=== PATIENT | male | born 1990 | race Caucasian/White ===

== ENCOUNTER 2021-12-22 10:28 | Emergency (ER) | payer OTHER, SELFPAY ==
[2021-12-22 10:41] VITALS: BP 120/91; PULSE 73; RESP 16; TEMP 36.6; O2SAT 99
--- NOTE | 2021-12-22 11:02 | ED.EAR ---
HPI - Ear Problem General Chief complaint: Ear Stated complaint: left ear pain Time Seen by Provider: 12/22/21 11:02 Source: patient and RN notes reviewed Mode of arrival: ambulatory Limitations: no limitations History of Present Illness HPI Narrative: 31-year-old male presents with concern for left ear pain. He reports symptoms started several days ago, he has had decreased hearing and a small amount of green drainage. He denies upper respiratory symptoms. Denies fever, bodies, chills, sweats. MD Complaint: ear pain Related Data Allergies Allergy/AdvReac Type Severity Reaction Status Date / Time No Known Allergies Allergy Verified 12/22/21 10:42 Review of Systems Review of Systems: CONSTITUTIONAL: Denies malaise, chills, sweats, or fever. EYES: Denies visual changes, redness, or discharge. ENT: Denies rhinorrhea, congestion, sinus pain, and sore throat. Reports left ear pain with drainage and decreased hearing CARDIOVASCULAR: Denies chest pain, palpitations, or edema. RESPIRATORY: Denies cough. Denies dyspnea. GASTROINTESTINAL: Denies abdominal pain, nausea, vomiting, diarrhea SKIN: Denies rash or itching. MUSCULOSKELETAL: Denies myalgia. NEUROLOGIC: Denies headache. All systems reviewed & are unremarkable except as noted in HPI and below PMFSH Comments At time of signature, agree with nursing past medical, surgical, social and family history. There is no relevant family history pertinent to the presenting complaint Exam Narrative: GENERAL: Well-appearing, well-nourished, and in no acute distress. HEAD: Normocephalic EYES: PERRLA, conjunctivae clear ENT: Nares clear. Right TM pearly braxton with sharp light reflex, left TM not visible due to excess cerumen and EAC edema; left tragal tenderness with EAC edema, erythema, edema and erythema of the tragus not extending into the face. Oropharynx not erythematous without lesions. Tonsils not enlarged and without exudate, no drooling, no hoarseness, no trismus, uvula midline. NECK: Supple. No lymphadenopathy CHEST: No respiratory distress, speaks in full sentences. HEART: Regular rate and rhythm. No murmur heard. SKIN: Warm, dry, no rash. NEURO: Alert and oriented x3. PSYCH: Normal mood and affect Course Course Emergency Course: Patient is aware of diagnosis, understands and agrees to treatment plan. Anticipatory guidance given. Patient agrees to follow-up as directed and is aware of reasons to seek care at the emergency department. Portions of this record may have been created with voice recognition software Level of Care: Express Care Visit Vital Signs Vital signs: Vital Signs Temperature 97.9 F 12/22/21 10:41 Pulse Rate 73 12/22/21 10:41 Respiratory Rate 16 12/22/21 10:41 Blood Pressure 120/91 H 12/22/21 10:41 Pulse Oximetry 99 12/22/21 10:41 Oxygen Delivery Room Air 12/22/21 10:41 Temperature 97.9 F 12/22/21 10:41 Pulse Rate 73 12/22/21 10:41 Respiratory Rate 16 12/22/21 10:41 Blood Pressure 120/91 H 12/22/21 10:41 Pulse Oximetry 99 12/22/21 10:41 Oxygen Delivery Room Air 12/22/21 10:41 Reviewed. Medical Decision Making MDM Narrative Medical decision making narrative: Differential diagnosis considered: Tse virus, strep pharyngitis, allergic rhinitis, upper respiratory tract infection, sinusitis, rhinosinusitis, nasopharyngitis. viral pharyngitis, otitis media, otitis externa, otitis effusion, cerumen impaction, foreign body. Exam findings show no acute concerns or changes; patient is non-toxic appearing and is in no distress. Patient is appropriate for outpatient treatment and follow-up. Vital Signs Vital Signs: Vital Signs Temperature 97.9 F 12/22/21 10:41 Pulse Rate 73 12/22/21 10:41 Respiratory Rate 16 12/22/21 10:41 Blood Pressure 120/91 H 12/22/21 10:41 Pulse Oximetry 99 12/22/21 10:41 Oxygen Delivery Room Air 12/22/21 10:41 Temperature 97.9 F 12/22/21 10:41 Pulse Rate 73 0
== END 2021-12-22 11:15 | disposition home or self-care (01) ==
PROVIDERS: Emergency Provider Nurse Practitioner
DX: H60.92 Unspecified otitis externa, left ear (principal); L08.9 Local infection of the skin and subcutaneous tissue, unspecified; K50.90 Crohn's disease, unspecified, without complications
CPT/HCPCS: 99213; G0463

== ENCOUNTER 2021-12-31 17:22 | Emergency (ER) | payer OTHER, SELFPAY ==
[2021-12-31 17:30] VITALS: PULSE 70; RESP 18; TEMP 36.1; O2SAT 100
--- NOTE | 2021-12-31 18:09 | ED.URI ---
HPI - URI/Sore Throat General Chief Complaint: Upper Respiratory Infection Stated Complaint: uri Time Seen by Provider: 12/31/21 18:09 Source: patient, RN notes reviewed and old records reviewed Mode of arrival: ambulatory Limitations: no limitations History of Present Illness HPI Narrative: 31-year-old male who presents to [facility] care with complaints of ear pain which continues described as pressure and cough with nasal congestion and drainage. Patient also reports that he vomited last night night and also today and he has had some diarrhea. Patient reports that he felt clammy at work today and he passed out with no injury and did not hit his head. Patient reports that he had 103 fever this morning is afebrile at this time. Patient states that he has been taking his antibiotic and ear drops that were ordered 7 days ago. Patient reports no COVId vaccination or flu shot did take home covid test yesterday which was negative. MD elicited complaint: fever, cough and other (nausea and vomiting with diarrhea.) Pain scale (0-10): 5 Treatments prior to arrival: cold medicine , antibiotics and other (ear drops) Related Data Allergies Allergy/AdvReac Type Severity Reaction Status Date / Time No Known Allergies Allergy Verified 12/31/21 18:01 Review of Systems Review of Systems: CONSTITUTIONAL: reports fever, chills, or sweats. EYES: Denies visual changes, redness, or discharge. ENT: positive for rhinorrhea, congestion,no sore throat, left ear pain and pressure CARDIOVASCULAR: Denies chest pain, palpitations, or edema. RESPIRATORY: Positive for cough denies dyspnea. GASTROINTESTINAL: Denies abdominal pain,positive for nausea, vomiting, or diarrhea. GENITOURINARY: Denies dysuria or hematuria. SKIN: Denies rash or itching. MUSCULOSKELETAL: Denies back pain, joint pain, or myalgia. NEUROLOGIC: Denies headache, numbness, or weakness. PSYCHIATRIC: Denies anxiety or depression. All systems reviewed & are unremarkable except as noted in HPI and below PMFSH Past Medical History Medical History (Updated 01/03/22 @ 13:14 by Meli Galvin NP) ADHD (attention deficit hyperactivity disorder) Crohn's disease IBS (irritable bowel syndrome) Surgical History Surgical History (Updated 01/03/22 @ 13:07 by Meli Galvin NP) History of brain surgery age 3 cyst removed from brain Social History Social History (Updated 01/03/22 @ 13:06 by Meli Galvin NP) Smoking status: Current every day smoker Alcohol intake: unknown Substance use type: does not use Gender identity (if verbalized by the patient): Male Comments At time of signature, agree with nursing past medical, surgical, social and family history. There is no relevant family history pertinent to the presenting complaint Exam Narrative: GENERAL: Well-appearing, fair-nourished, and in no acute distress. HEAD: Normocephalic, atraumatic. EYES: PERRLA and EOMI. ENT: Nares with minimal redness clear rhinorrhea no epistaxis. Mucous membranes moist.Right TM normal, Left TM normal with swelling and irritation to left ear canal no drainage noted, throat pink with no tonsil enlargement NECK: Supple.no lymphadenopathy CHEST: Clear to auscultation. No respiratory distress. HEART: Regular rate and rhythm. No murmur heard. Normal peripheral pulses. ABDOMEN: Soft, nontender, to palpation, nondistended, normal active bowel sounds.reported nausea with vomiting and diarrhea. EXTREMITIES: Normal range of motion. No edema. SKIN: Warm, dry, no rash. NEURO: No focal deficits. Alert and oriented x3. Course Course Level of Care: Express Care Visit Vital Signs Vital signs: Vital Signs Temperature 36.1 C L 12/31/21 17:30 Pulse Rate 70 12/31/21 17:30 Respiratory Rate 18 12/31/21 17:30 Pulse Oximetry 100 12/31/21 17:30 Oxygen Delivery Room Air 12/31/21 17:30 Temperature 36.1 C L 12/31/21 18:24 Pulse Rate 70 12/31/21 18:24 Respiratory Rate 18 12/31/21 18:24
[2021-12-31 18:24] VITALS: BP 120/87; PULSE 70; RESP 18; TEMP 36.1; O2SAT 100
== END 2021-12-31 18:34 | disposition home or self-care (01) ==
PROVIDERS: Emergency Provider Registered Nurse
DX: J06.9 Acute upper respiratory infection, unspecified (principal); H60.92 Unspecified otitis externa, left ear; R11.2 Nausea with vomiting, unspecified; R19.7 Diarrhea, unspecified; F17.200 Nicotine dependence, unspecified, uncomplicated; K50.90 Crohn's disease, unspecified, without complications; Z28.310 Unvaccinated for COVID-19
CPT/HCPCS: 99213; G0463

== ENCOUNTER 2023-12-04 10:03 | Emergency (ER) | payer OTHER, SELFPAY ==
[2023-12-04 10:20] VITALS: BP 134/93; PULSE 77; RESP 16; TEMP 36.4; O2SAT 100
--- NOTE | 2023-12-04 10:34 | ED.SKABFB ---
HPI - Skin/Abscess/Foreign Bdy General Chief complaint: Skin/Abscess/Foreign Body Stated complaint: area under right eye swollen,painful Time Seen by Provider: 12/04/23 10:35 Source: patient Mode of arrival: ambulatory Limitations: no limitations History of Present Illness HPI narrative: 33 y/o male presented for c/o right facial swelling and pain. States yesterday he tried to pop a pimple near the nose, and woke this morning with swelling under the right eye. Denies any dental pain or swelling to the gums. Denies nausea, vomiting, diarrhea, fever. Applied ice this morning and says swelling is improving. Related Data Home Medications Medication Instructions Recorded Confirmed Otc Reflux Med 1 tab-cap PO DAILY 12/04/23 12/04/23 Allergies Allergy/AdvReac Type Severity Reaction Status Date / Time No Known Allergies Allergy Verified 12/04/23 10:11 Review of Systems Review of Systems: CONSTITUTIONAL: Denies body aches, fever, chills, or sweats. EYES: Denies visual changes, redness, or discharge. ENT: Denies rhinorrhea, congestion CARDIOVASCULAR: Denies chest pain, palpitations, or edema. RESPIRATORY: Denies cough or dyspnea. GASTROINTESTINAL: Denies abdominal pain, nausea, vomiting, or diarrhea. SKIN: Reports swelling and redness to the right cheek /face MUSCULOSKELETAL: Denies back pain, joint pain, or myalgia. NEUROLOGIC: Denies headache, numbness, tingling, or weakness. [facility] Past Medical History Medical History ADHD (attention deficit hyperactivity disorder) Crohn's disease IBS (irritable bowel syndrome) Surgical History Surgical History History of brain surgery age 3 cyst removed from brain Social History Social History Smoking status: Current every day smoker Alcohol intake: unknown Substance use type: does not use Gender identity (if verbalized by the patient): Male Comments At time of signature, I have reviewed and agree with nursing past medical, surgical, social and family history unless otherwise noted. Please see nursing chart for further information. There is no relevant family history pertinent to the presenting complaint Exam Narrative: GENERAL: Well-appearing HEAD: Normocephalic, atraumatic. EYES: conjunctivae clear, and EOMI. ENT: Mucous membranes moist. right lower eye/ maxilla with mild erythema, swelling, and tenderness with palpation; firm area lateral to right nostril, no fluctuance or active drainage. Oropharynx without edema, erythema or lesions. NECK: Supple. No lymphadenopathy CHEST: Clear to auscultation. HEART: Regular rate and rhythm. SKIN: Warm, dry. NEURO: Alert and oriented x3. HENMT: Face images: 1. area of erythema, mild swelling and tenderness Course Course Emergency Course: Patient is aware of diagnosis, understands and agrees to treatment plan. Anticipatory guidance given. Patient agrees to follow-up as directed and is aware of reasons to seek care at the emergency department. Portions of this record may have been created with voice recognition software Level of Care: Express Care Visit Vital Signs Vital signs: Vital Signs Temperature 97.6 F 12/04/23 10:20 Pulse Rate 77 12/04/23 10:20 Respiratory Rate 16 12/04/23 10:20 Blood Pressure 134/93 H 12/04/23 10:20 Pulse Oximetry 100 12/04/23 10:20 Oxygen Delivery Room Air 12/04/23 10:20 Temperature 97.6 F 12/04/23 10:20 Pulse Rate 77 12/04/23 10:20 Respiratory Rate 16 12/04/23 10:20 Blood Pressure 134/93 H 12/04/23 10:20 Pulse Oximetry 100 12/04/23 10:20 Oxygen Delivery Room Air 12/04/23 10:20 Reviewed MDM - Skin/Abscess/Foreign Bdy MDM Narrative Medical decision making narrative: IM Rocephin and Solumedrol given, ice pack applied to face. Reported improvement
[2023-12-04] MEDS: cefTRIAXone 1 GM, LIDOCAINE HCL 1% LOCAL INJ 2.1 ML IM (10:51)
[2023-12-04] MEDS: methylPREDNISolone SOD SUCC 125 MG VIAL IM (10:52)
== END 2023-12-04 11:30 | disposition home or self-care (01) ==
PROVIDERS: Emergency Provider Nurse Practitioner Family; PCP Internal Medicine Gastroenterology
DX: L03.211 Cellulitis of face (principal); F17.200 Nicotine dependence, unspecified, uncomplicated; K50.90 Crohn's disease, unspecified, without complications
CPT/HCPCS: 96372; 99214; G0463; J0696; J2919

== ENCOUNTER 2024-09-23 12:41 | Emergency (ER) | payer OTHER, SELFPAY ==
--- NOTE | 2024-09-23 12:47 | ED_ITS ---
HPI - Eye Problem General Chief complaint: Eye Problems Stated complaint: Left Eye Irritation Time Seen by Provider: 09/23/24 12:48 Source: patient Mode of arrival: ambulatory Limitations: no limitations History of Present Illness HPI Narrative: Yadiel is a 34-year-old male patient presenting to the clinic today with complaints of left eye irritation. He reports on Tuesday he was helping a friend build a barn and thought that he may have gotten some thin in his eye. He was looking up and felt as though symptoms May of when to his eye as he was putting a screw in. The eye is burning and watering. Was matted shut this morning. Denies any visual changes otherwise. Is concerned that he may have a burn, scratch, or it may have gotten some pain in his eye. Related Data Allergies Allergy/AdvReac Type Severity Reaction Status Date / Time No Known Allergies Allergy Verified 09/23/24 12:44 Review of Systems Review of Systems: Pertinent positives per HPI. Patient denies any fever, chills, rash, headache, visual changes, dizziness, cough, runny nose, sore throat, shortness of breath, chest pain, palpitations, nausea, vomiting, diarrhea, constipation, abdominal pain, or any urinary issues. PMFSH Past Medical History Medical History Crohn's disease IBS (irritable bowel syndrome) ADHD (attention deficit hyperactivity disorder) Surgical History Surgical History History of brain surgery age 3 cyst removed from brain Social History Social History Smoking status: Current every day smoker Alcohol intake: unknown Substance use type: does not use Gender identity (if verbalized by the patient): Male Comments At the time of my signature, I reviewed and agree with the nursing past medical, surgical, social, and family history. There is no relevant family history pertinent to the patient complaint. Exam Narrative: General: Well-developed, well nourished, in no apparent distress Head: Normocephalic, atraumatic Eyes: Pupils equally round and reactive to light bilaterally, EOM intact, right sclera and conjunctive clear, left sclera and conjunctiva mildly injected with watery discharge, right lids normal, left lids mildly red and swollen, lam lamp exam performed. Ears: TMs intact and clear, ear canals clear, no drainage, grossly hearing normal. Nose: Nares patent, no discharge, no inflammation, no sinus tenderness. Mouth: Oropharynx without lesions or masses, good dentition, MMM. Neck: Supple, trachea midline, no enlargement of anterior or posterior cervical nodes, no thyroid masses or goiter palpable. Cardio: Regular rate and rhythm, s1 and s2 normal, no murmur appreciated. Resp: Clear to auscultation bilaterally anteriorly and posteriorly, no rhonchi, rales, wheezing or rubs Course Course Emergency Course: Portions of this record may have been created with voice recognition software. Level of Care: Express Care Visit Vital Signs Vital signs: Vital signs reviewed Procedures Other Procedure Procedure 1: Other Procedure: Two drops topical tetracaine anesthetic was instilled with good anesthesia. Fluorescein stain of the left eye was performed with corneal abrasion noted at 3:00 o'clock to the medial eye/sclera outside the visual field, foreign body noted to the left middle eye over the visual field. No ulcer or dendritic lesion. Upper lid was everted and no FB or lesions were noted. NO Noé sign. Normal saline irrigation eye solution was performed and the patient tolerated the procedure well, no adverse reaction or complications. What sterile cotton tip applicator was used to remove foreign body from the mid eye however there is some residual that is no longer raised-possible rust ring. Visual acuity noted. MDM - Eye Problem MDM Narrative Medical decision making narrative: At the time of visit patient is resting comfortably on the exam table. Patient appears to be nontoxic. Procedures: Wood's lamp exam was performed. Corneal abrasion noted to the left medial eye at 3 o'clock outside the visual field. FB seen over the middle of the left eye over the visual field. Was able to remove some FB with wet sterile cotton tip application but some remains- possible rust ring as area was no longer elevated. Plan: I suspect patient possibly has foreign body retained in the left eye verses a rust ring. Was able to remove a black speck out of the left eye using a sterile soaked cotton swab. Corneal abrasion noted to the medial left eye. Prescription for tobramycin eyedrops was sent to the pharmacy. Supportive measures were discussed with the patient and they voiced understanding discharge instructions and agrees to treatment plan. Return precautions reviewed Differential Diagnosis Differential diagnosis: Likely corneal abrasion, conjunctivitis, acute iritis, hyphema, periorbital cellulitis, subconjunctival hemorrhage, glaucoma, corneal ulcer, ruptured globe and other Discharge Plan Discharge Clinical Impression: Corneal abrasion, left, Foreign body in eye Patient Disposition: Home Condition: Stable Instructions: Antibiotic Form, Corneal Abrasion (ED), Eye Foreign Body (ED) Additional Instructions: Retained foreign body in the left mid eye over the visual field visual field- possible rust ring for FB removal in clinic Corneal abrasion to the left lateral eye Instill tobramycin eyedrops as prescribed Follow-up with eye doctor as soon as possible- Dr. Rodriguez with [facility] in [place]-call office tomorrow to schedule appointment- Patient Language: Mauritian Prescriptions: New tobramycin 0.3 % drops 1 drp LEFT EYE Q4H 7 Days Qty: 5 0RF Follow-up/Referrals: Dennis,Will Vegas MD [Primary Care Provider] - Time of Disposition: 13:12 Quality NIHSS Nursing Documentation ED NIHSS nursing documentation: reviewed/agree
[2024-09-23 12:49] VITALS: BP 136/81; PULSE 76; RESP 20; TEMP 36.4; O2SAT 100
[2024-09-23] MEDS: FLUORESCEIN SOD 1 MG/STRIP LEFT EYE (12:56)
[2024-09-23] MEDS: TETRACAINE HCL 0.5% OPHTH SOLN 4 ML BTL LEFT EYE (12:56)
[2024-09-23] MEDS: DACRIOSE EYE IRRIGATION 118 ML BOTTLE LEFT EYE (12:57)
== END 2024-09-23 13:20 | disposition home or self-care (01) ==
PROVIDERS: Emergency Provider Nurse Practitioner Family; PCP Internal Medicine Gastroenterology
DX: S05.02XA Injury of conjunctiva and corneal abrasion without foreign body, left eye, initial encounter (principal); T15.92XA Foreign body on external eye, part unspecified, left eye, initial encounter; W44.9XXA Unspecified foreign body entering into or through a natural orifice, initial encounter; F17.200 Nicotine dependence, unspecified, uncomplicated; K50.90 Crohn's disease, unspecified, without complications
CPT/HCPCS: 65205; 99213; A9270; G0463